=== PATIENT | male | born 1955 | race Caucasian/White ===

== ENCOUNTER → 2016-06-08 | Day surgery (SDC) | payer BC ==
[2016-06-06 14:44] VITALS: Ht 172.7 cm; Wt 100.0 kg
[~2016-06-08] VITALS: Ht 172.7 cm; Wt 100.0 kg
[~2016-06-08] MED LIST: ATROPINE SULFATE 0.1 MG/ML 5ML SYR IV PRN; CIPR-255 PO; CIPROFLOXACIN / D5W 400 MG IV SCH; DEXAMETHASONE SOD INJ 4 MG/ML VIAL ONE; EpHEDrine SULFATE INJ 50 MG/ML AMP IV PRN; EpHEDrine SULFATE INJ 50 MG/ML AMP ONE; FENTANYL CITRATE INJ 50 MCG/1 ML 2 ML VIAL IV PRN; FENTANYL CITRATE INJ 50 MCG/1 ML 2 ML VIAL ONE; HYDR-5688 PO; LACTATED RINGER'S 1000ML 1,000 ML IV SCH; LISI10TA PO; ONDANSETRON INJ 2 MG/ML 2 ML VIAL IV PRN; ONDANSETRON INJ 2 MG/ML 2 ML VIAL ONE; PHEN-775 PO; PROPOFOL IV EMULSION 10 MG/ML 20 ML VIAL IV ONE; RANITIDINE HCL 25 MG/ML INJ ONE; TAMS0.4C38 PO
--- NOTE | 2016-06-08 09:54 | DIAGNOSTIC IMAGING REPORT ---
KUB HISTORY: N20.1 Calculus of [id number] COMPARISON: KUB 05/30/2016. FINDINGS: The bowel gas pattern is unremarkable. There are no dilated loops of small bowel to suggest an obstruction. Interval placement of a right ureteral stent which appears to be in good position. The 11 mm stone within the distal right ureter is unchanged in position. Multiple pelvic phleboliths are again noted. Punctate stone within the right kidney remains stable. There are 2 stones within the left kidney with the largest measuring 11 mm. These are also unchanged. No pneumoperitoneum or pneumatosis. IMPRESSION: 1. Interval placement of a right ureteral stent which appears be in good position. 2. The 11 mm stone within the distal right ureter is not significantly changed in position. 3. Stable bilateral nephrolithiasis. Electronically signed by: Lauro Cole M.D. 06/08/2016 9:52 AM Dictated Date/Time: 06/08/2016 9:50 AM
--- NOTE | 2016-06-08 12:35 | History & Physical Bridge - SC ---
H&P Re-Evaluation Bridge Note: I have examined the patient, reviewed the History & Physical and in the interval since the performance of the History & Physical I have noted the following changes of clinical significance: No changes noted
--- NOTE | 2016-06-08 13:26 | [facility] Post Operative Brief Note ---
Immediate Operative Summary Operative Date Jun 08, 2016. Pre-Operative Diagnosis right utreteral stone Post-Operative Diagnosis same Procedure(s) Performed Right Extacorporeal Shock Wave Lithotripsy Surgeon dr castro Safety Specialist Surgeon(s) none Estimated Blood Loss 0 Findings stone appeared to fragment Specimens 0
--- NOTE | 2016-06-08 13:27 | Discharge Instructions-SurgCtr ---
Discharge Instructions Visit Reason for Visit: Stones Discharge Discharge Diagnosis / Problem: same Discharge Goals Goal(s): Decrease discomfort, Increase independence, Improve disease control Activity Recommendations Activity Limitations: as noted below (no driving on narcotics) Anesthesia . Post Anesthesia Instructions: If you have had General Anesthesia or IV Sedation: * Do not drive today. * Resume driving when surgeon permits. * Do not make important decisions or sign legal documents today. * Call surgeon for: 1. Temperature elevations greater than 101 degrees F. 2. Uncontrollable pain. 3. Excessive bleeding. 4. Persistent nausea and vomiting. 5. Medication intolerance (nausea, vomiting or rash). * For nausea and vomiting use only clear liquids such as: tea, soda, bouillon until nausea subsides, then gradually increase diet as tolerated. * If you have any concerns or questions, call your surgeon's office. If physician is unavailable and it is an emergency, call 911 or go to the nearest emergency room. . Diet Recommendations Home Diet: resume previous diet Procedures Procedures Performed: Right Extacorporeal Shock Wave Lithotripsy Medical Emergencies . Who to Call and When: Medical Emergencies: If at any time you feel your situation is an emergency, please call 911 immediately. . Non-Emergent Contact Non-Emergency issues call your: Urologist . . "Provider Documentation" section prepared by Herb Linton.
--- NOTE | 2016-06-08 13:48 | Anesthesia Progress Nt - [facility] ---
Anesthesia Post Op Note Date & Time Jun 08, 2016 at 13:47 Vital Signs Pain Intensity: 0 Vital Signs Past 12 Hours Date Time Temp Pulse Resp B/P Pulse Ox O2 Delivery O2 Flow Rate FiO2 06/08/16 10:27 36.9 87 18 160/92 95 Room Air Notes Mental Status: alert / awake / arousable, participated in evaluation Pt Amnestic to Procedure: Yes Nausea / Vomiting: adequately controlled Pain: adequately controlled Airway Patency, RR, SpO2: stable & adequate BP & HR: stable & adequate Hydration State: stable & adequate Anesthetic Complications: no major complications apparent
[2016-06-08 14:15] VITALS: TEMP 36.5
[2016-06-08 14:33] VITALS: BP 133/83; PULSE 81; O2SAT 96
--- NOTE | 2016-06-08 14:53 | OPERATIVE REPORT ---
DATE OF OPERATION: 06/08/2016 PROCEDURE PERFORMED: Right ureteral ESWL. SURGEON: Dr. Linton. ANESTHESIA: General. INDICATIONS: The patient is a 61-year-old male who had a stent placed for a right stone and had an 11 x 6 distal right ureteral stone that presented for lithotripsy. DESCRIPTION OF THE PROCEDURE: The patient was taken to the operating room where he was placed in the supine position, Venodyne stockings had been placed. He was given antibiotics. General anesthesia was administered. The stone was visualized from above in 2 views and then he was given 3000 shocks half at level 6. The stone did appear to fragment by the end of the procedure. At the end of the procedure, the patient was transferred to the recovery room in stable condition. I attest to the content of the Intraoperative Record and any orders documented therein. Any exceptio ns are noted below.
== END | disposition home or self-care (01) ==
LOC: X.SURG 09:51
PROVIDERS: ATTEND Urology
DX: N20.1 Calculus of ureter (principal); I10 Essential (primary) hypertension; Z98.890 Other specified postprocedural states; Z82.49 Family history of ischemic heart disease and other diseases of the circulatory system; Z80.42 Family history of malignant neoplasm of prostate

== ENCOUNTER → 2016-06-26 | Day surgery (SDC) | payer BC ==
[2016-06-18 15:21] VITALS: BMI 33.0
[~2016-06-26] VITALS: Ht 172.7 cm; Wt 100.0 kg
[~2016-06-26] MED LIST changes: +CEFTRIAXONE SOD INJ 1000 MG in DEXTROSE 5% 50ML IV SCH; -EpHEDrine SULFATE INJ 50 MG/ML AMP ONE; +HYDROCODONE/ACETAMOPHEN 5/325MG TAB PO PRN; +KETOROLAC TROMETHAMINE 30 MG/ML VIAL IV. STA; +LIDOCAINE HCL 2% 2 ML VIAL (20MG/ML) ONE; +MIDAZOLAM HCL 1 MG/ML 2ML VIAL ONE; +NURSING VERBAL MED ORDER ONE; -ONDANSETRON INJ 2 MG/ML 2 ML VIAL IV PRN; -RANITIDINE HCL 25 MG/ML INJ ONE; +SODIUM CHLORIDE 0.9% 1000ML 1,000 ML IV SCH
[2016-06-26 08:54] VITALS: BP 120/88; PULSE 79; TEMP 36.6; O2SAT 97; Ht 172.7 cm; Wt 100.0 kg
--- NOTE | 2016-06-26 11:47 | [facility] Post Operative Brief Note ---
Immediate Operative Summary Operative Date Jun 26, 2016. Pre-Operative Diagnosis right ureteral stone Post-Operative Diagnosis same Procedure(s) Performed cystoscopy, right semi-rigid ureterscopy, right ureteral stent exchange ([id number]), laser lithotripsy Surgeon Dr. Vu Lumber Bearer Surgeon(s) none Estimated Blood Loss 5ml Findings Large right ureteral calculus Specimens A. right ureteral stones for analysis Drains [id number] Anesthesia gen Complication(s) None Disposition Recovery Room / PACU (stable)
--- NOTE | 2016-06-26 11:52 | Discharge Instructions ---
Discharge Instructions Admission Reason for Admission: Stones Discharge Discharge Diagnosis / Problem: stones Discharge Goals Goal(s): Decrease discomfort, Improve function, Increase independence, Improve disease control Activity Recommendations Activity Limitations: resume your previous activity Lifting Limitations: none Exercise/Sports Limitations: none May Resume Sexual Activity: when tolerated Shower/Bathe: no limitations Driving or Machine Use: no limitations (as long as you are off of pain medications) . Instructions / Follow-Up Instructions / Follow-Up Please come to Dr. Vu's office on Jul 06 at 12:45 to have your stent removed. Discharge Diet Recommended Diet: Regular Diet Procedures Procedures Performed: cystoscopy, right semi-rigid ureterscopy, right ureteral stent exchange ([id number]), laser lithotripsy Pending Studies Studies pending at discharge: no Medical Emergencies . Who to Call and When: Medical Emergencies: If at any time you feel your situation is an emergency, please call 911 immediately. . Non-Emergent Contact Non-Emergency issues call your: Urologist Call Non-Emergent contact if: you have a fever, temperature is above 101.5, your pain is not controlled . . "Provider Documentation" section prepared by Max Fung. VTE Core Measure Inpt VTE Proph given/why not?: Treatment not indicated [place] Drug Monitoring Program Search Results: patient reviewed within database, no issues identified
[2016-06-26 12:38] VITALS: BP 127/77; PULSE 78; TEMP 36.5; O2SAT 96
--- NOTE | 2016-06-26 12:38 | Anesthesiology Progress Note ---
Anesthesia Post Op Note Date & Time Jun 26, 2016 at 12:37 Vital Signs Pain Intensity: 0 Vital Signs Past 12 Hours Date Time Temp Pulse Resp B/P Pulse Ox O2 Delivery O2 Flow Rate FiO2 06/26/16 12:35 36.4 80 14 124/81 92 Room Air 06/26/16 12:25 83 18 133/80 92 Room Air 06/26/16 12:15 79 24 130/88 97 Mask 10 06/26/16 12:05 79 15 118/78 97 Mask 10 06/26/16 11:55 36.5 93 17 113/76 95 Mask 10 06/26/16 08:54 36.6 79 18 120/88 97 Room Air Notes Mental Status: alert / awake / arousable, participated in evaluation Pt Amnestic to Procedure: Yes Nausea / Vomiting: adequately controlled Pain: adequately controlled Airway Patency, RR, SpO2: stable & adequate BP & HR: stable & adequate Hydration State: stable & adequate Anesthetic Complications: no major complications apparent
[2016-06-26 13:10] VITALS: BP 159/83; PULSE 79; TEMP 36.5; O2SAT 96
[2016-06-26 13:36] VITALS: BP 164/89; PULSE 82; TEMP 36.5; O2SAT 95
--- NOTE | 2016-06-26 17:19 | OPERATIVE REPORT ---
DATE OF OPERATION: 06/26/2016 PREOPERATIVE DIAGNOSIS: Right ureteral calculus. POSTOPERATIVE DIAGNOSIS: Right ureteral calculus. PROCEDURE PERFORMED: Right ureteroscopy, laser lithotripsy and ureteral stent exchange. ANESTHESIA: General. ESTIMATED BLOOD LOSS: Zero. SPECIMENS: Stone for chemical analysis. DESCRIPTION OF THE PROCEDURE: Rafiq Dunbar was identified in the preoperative holding area. Appropriate informed consents were reviewed and completed and the patient was transported to the operating suite. Upon arrival, he received appropriate preoperative antibiotics in the form of ceftriaxone as well as general anesthesia. He was placed in dorsal lithotomy position and sterilely prepped and draped. I began the case by passing a 22-[place] cystoscope with 30 degree lens. The patient has no evidence of urethral stricture disease. Prostate is relatively small in size without significant obstruction. Inspection of the bladder revealed no evidence of mucosal disease. He has a right ureteral stent easily visualized protruding from the right ureteral orifice. The distal end of the stent was grasped with a flexible grasper and withdrawn to the urethral meatus, where it was intubated with a sensor wire. Under fluoroscopy, I guided the wire to the kidney. I then withdrew the stent. There was no incrustation. I then reentered the bladder with a semirigid ureteroscope alongside the wire. I guided it into the distal right ureter. This was navigated into the mid ureter, where I encountered a large stone filling the lumen of the ureter. I lasered the stone until it was fragmented completely and I was able to manually irrigate all the fragments out of the ureter. Of note, on inspection at that time, I noted that the wire and presumably the previously placed stent were passing under mucosal band likely at the point of impaction. Proximally, this was back in the ureter, it was very narrow, approximately 3-4 mm gap, submucosal. I repositioned this into the mid lumen without any submucosal passage. I then placed a 6-[place] x 22-32 cm double-J ureteral stent without any difficulty. There was a good curl seen in the kidney as well as the bladder. The patient was subsequently extubated and the case concluded. There were no complications. I attest to the content of the Intraoperative Record and any orders documented therein. Any exceptio ns are noted below.
== END | disposition home or self-care (01) ==
LOC: C.ACU 08:26
PROVIDERS: ATTEND Urology
DX: N20.1 Calculus of ureter (principal); R97.20 Elevated prostate specific antigen [PSA]; I10 Essential (primary) hypertension; E66.9 Obesity, unspecified; Z98.890 Other specified postprocedural states; Z68.33 Body mass index [BMI] 33.0-33.9, adult; Z80.42 Family history of malignant neoplasm of prostate; Z82.49 Family history of ischemic heart disease and other diseases of the circulatory system

== ENCOUNTER → 2016-07-14 | Outpatient (CLI) | payer BC ==
[~2016-07-14] MED LIST changes: -ATROPINE SULFATE 0.1 MG/ML 5ML SYR IV PRN; -CEFTRIAXONE SOD INJ 1000 MG in DEXTROSE 5% 50ML IV SCH; -CIPROFLOXACIN / D5W 400 MG IV SCH; -DEXAMETHASONE SOD INJ 4 MG/ML VIAL ONE; -EpHEDrine SULFATE INJ 50 MG/ML AMP IV PRN; -FENTANYL CITRATE INJ 50 MCG/1 ML 2 ML VIAL IV PRN; -FENTANYL CITRATE INJ 50 MCG/1 ML 2 ML VIAL ONE; -HYDROCODONE/ACETAMOPHEN 5/325MG TAB PO PRN; -KETOROLAC TROMETHAMINE 30 MG/ML VIAL IV. STA; -LACTATED RINGER'S 1000ML 1,000 ML IV SCH; -LIDOCAINE HCL 2% 2 ML VIAL (20MG/ML) ONE; -MIDAZOLAM HCL 1 MG/ML 2ML VIAL ONE; -NURSING VERBAL MED ORDER ONE; -ONDANSETRON INJ 2 MG/ML 2 ML VIAL ONE; -PHEN-775 PO; -PROPOFOL IV EMULSION 10 MG/ML 20 ML VIAL IV ONE; -SODIUM CHLORIDE 0.9% 1000ML 1,000 ML IV SCH
[2016-07-14 09:37] LABS: HEMATOCRIT 43.7 % (42-52); MEAN CELL VOLUME 83.9 fL (80-100); MEAN CORPUSCULAR HEMOGLOBIN 29.8 pg (25-34); MEAN CORPUSCULAR HGB CONC 35.5 g/dl (32-36); MEAN PLATELET VOLUME 11.2 fL (7.4-10.4); PLATELET COUNT 203 K/uL (130-400); RED BLOOD COUNT 5.21 M/uL (4.7-6.1); WHITE BLOOD COUNT 7.87 K/uL (4.8-10.8)
[2016-07-14 10:06] LABS: ALT/SGPT 23 U/L (12-78); BLOOD UREA NITROGEN 13 mg/dl (7-18); BUN/CREATININE RATIO 12.7 (10-20); CALCIUM 8.8 mg/dl (8.5-10.1); CARBON DIOXIDE 29 mmol/L (21-32); CHLORIDE 108 mmol/L (98-107); CHOLESTEROL 193 mg/dl (0-200); GLUCOSE 99 mg/dl (70-99); POTASSIUM 4.2 mmol/L (3.5-5.1); SODIUM 143 mmol/L (136-145); TRIGLYCERIDES 145 mg/dl (0-150); VERY LOW DENSITY LIPOPROT CALC 29 mg/dl
[2016-07-14 10:10] LABS: ALB/GLOB RATIO 0.9 (0.9-2); ALKALINE PHOSPHATASE 65 U/L (45-117); AST/SGOT 15 U/L (15-37); CHOLESTEROL/HDL RATIO 4.4; HDL CHOLESTEROL 44 mg/dl; LDL CHOLESTEROL CALCULATED 120 mg/dl
== END | disposition home or self-care (01) ==
LOC: C.LAB 08:50
PROVIDERS: ATTEND Urology
DX: Z00.00 Encounter for general adult medical examination without abnormal findings (principal); R97.20 Elevated prostate specific antigen [PSA]; N20.1 Calculus of ureter